=== PATIENT | male | born 1955 | race American Indian/Alaskan Native ===

== ENCOUNTER 2018-06-20 13:19 | Outpatient (CLI) | payer OTHER | END 2018-06-20 20:25 | disposition home or self-care (01) | LOC: RAD 13:19 | DX: M25.462 Effusion, left knee (principal) ==

== ENCOUNTER 2018-07-18 11:18 | Outpatient (CLI) | payer OTHER | END 2018-07-18 20:13 | disposition home or self-care (01) | LOC: RAD 11:18 | DX: Z01.810 Encounter for preprocedural cardiovascular examination (principal); Z01.811 Encounter for preprocedural respiratory examination; Z01.812 Encounter for preprocedural laboratory examination | CPT/HCPCS: 93005 ==